=== PATIENT | female | born 1955 | race Caucasian/White ===

== ENCOUNTER 2016-04-01 14:01 | Emergency (ER) | payer OTHER ==
[~2016-04-01] VITALS: Ht 167.6 cm; Wt 78.5 kg
[2016-04-01 14:15] VITALS: BP 152/72
--- NOTE | 2016-04-01 14:39 | ED UPPER/LOWER EXTREMITY COMPL ---
History of Present Illness General Chief Complaint: Fall Stated Complaint: BIBA FALL, ABRASION TO R ARM Source: patient Exam Limitations: no limitations Vital Signs & Intake/Output Vital Signs & Intake/Output Vital Signs Date Time Temp Pulse Resp B/P Pulse O2 O2 Flow FiO2 Ox Delivery Rate 04/01 1415 96.4 66 20 152/72 98 Room Air Allergies Coded Allergies: No Known Allergies (04/01/16) Reconcile Medications Aspirin (Aspirin*) 81 MG TAB.CHEW 1 TAB PO DAILY HEART HEALTH (Reported) Doxycycline Hyclate (Acticlate) 150 MG TABLET 1 TAB PO DAILY ANTIBIOTIC, INFECTION (Reported) Duloxetine HCl 30 MG CAPSULE.DR 1 CAP PO DAILY MENTAL HEALTH (Reported) Levothyroxine Sodium 125 MCG TABLET 1 TAB PO DAILY AC THYROID (Reported) Nebivolol HCl (Bystolic) 10 MG TABLET 1 TAB PO DAILY HEART (Reported) Valsartan/Hydrochlorothiazide (Valsartan-Hctz 160-12.5 MG Tab) 160 MG-12.5 MG TABLET 1 TAB PO DAILY HEART (Reported) Triage Note: PT BIBA TO TRIAGE S/P SLIP AND FALL TODAY. PT WAS AT WORK, SLIPPED ON WATER ON THE FLOOR AND FELL TO THE GROUND. STATES "I BARELY HIT MY HEAD". DENIES LOC. C/O ABRASION TO RFA. Triage Nurses Notes Reviewed? yes Onset: Abrupt Duration: better Timing: single episode today Severity: mild Severity Numbers: 1 Pain/Injury Location: Right: Elbow. Method of Injury: direct blow HPI: Patient is a 61-year-old female who presents to emergency room stating that while at work today patient slipped on a wet floor resulting in patient bracing her fall with the inside part of her right elbow striking the countertop and subsequently patient fell backwards and had "a minimal tap" to the back of her head To the ground Patient denies any preceding episode of lightheaded sensation or dizziness. Denies any loss of consciousness. Currently denies any pain denies any headache back pain neck pain extremity pain. Patient does note bruising to the medial aspect of her right elbow. However with ambulation and upper extremity movements she has no pain no medications given prior to arrival. Denies any photophobia lightheaded sensation dizziness She was advised to present to the emergency room because this occurred at work (SHADE DANG) Past History Travel History Traveled to [place] past 21 day No Medical History Any Pertinent Medical History? see below for history Neurological: TIA Cardiovascular: hypertension Surgical History Surgical History: non-contributory Psychosocial History What is your primary language Dutch Tobacco Use: Quit >30 days ago ETOH Use: denies use Illicit Drug Use: denies illicit drug use Family History Hx Contributory? No (SHADE DANG) Review of Systems Review of Systems Constitutional: Reports: no symptoms. EENTM: Reports: no symptoms. Respiratory: Reports: no symptoms. Cardiovascular: Reports: no symptoms. Gastrointestinal/Abdominal: Reports: no symptoms. Genitourinary: Reports: no symptoms. Musculoskeletal: Reports: see HPI. Skin: Reports: no symptoms. Neurological/Psychological: Reports: no symptoms. Hematologic/Endocrine: Reports: see HPI, bruising. Immunological: Reports: no symptoms. All Other Systems: Reviewed and Negative (SHADE DANG) Physical Exam Physical Exam General Appearance: no apparent distress, alert Neurologic/Tendon: normal sensation, normal motor functions, normal tendon functions, responds to pain, no evidence tendon injury, no pulse deficit Skin: intact Comments: Well-developed well-nourished person in no acute distress HEENT: Normal EENT exam, extraocular motion intact, no nystagmus. Pupils equally round and reactive to light and accommodation. Nose is atraumatic. External auditory canal and Tympanic membranes clear. Pharynx normal. No swelling or edema. Neck: Supple, no lymphadenopathy, normal range of motion without pain or tenderness No central spinous tenderness Back: Nontender, no CVA tenderness. Full range of motion No central spinous tenderness Cardiovascular: Regular rate and rhythms no murmurs rubs or gallops, normal JVP Respiratory: Chest nontender. No respiratory distress.breath sounds clear to auscultation bilaterally Abdomen: Soft, nontender nondistended, no appreciable organomegaly. Normal bowel sounds. No ascites Extremity: no calf tenderness to palpation, normal and equal pulses. Right shoulder nontender normal section full active range of motion Right elbow mild medial epicondyle ecchymosis noted nontender full active range of motion full resisted range of motion with flexion and extension Right upper extremity dermatomes intact radial pulse +2 Neuro: Alert oriented x3, motor sensory normal, cranial nerves II through XII grossly intact. Negative Romberg and negative cerebellar testing Skin: No appreciable rash on exposed skin, skin is warm and dry. Psych: Mood and affect is normal, memory and judgment is normal. (SHADE DANG) Progress Differential Diagnosis: arterial insufficiency, compartment syndrome, contusion, dislocation, DVT, fracture, gout, septic arthritis, sprain, tendon injury, ich, CONCUSSION, FRACTURE Plan of Care: Patient currently offers no complaints and denies any pain denies any headache Denies any loss of consciousness no central spinous tenderness no basilar skull fracture signs no severe mechanism injury. No vomiting has occurred. At this time patient does not require CT scan to rule out ICH of head Upon discharge patient looks well no apparent distress Patient also has full active range of motion and full resisted range of motion to contusion site of right elbow which does not require emergent x-ray for concerns of osseous injury patient agrees with disposition and plan and has no questions (SHADE DANG) Departure Departure Disposition: HOME OR SELF CARE Condition: Stable Clinical Impression Primary Impression: Contusion of elbow, right Secondary Impressions: Minor head injury Referrals: HENRY DAMIAN,ENRIQUE [place] (PCP/Family) Referred to [facility] as new patient No Additional Instructions: As discussed begin icing the bruise 20 minutes every 2 hours for pain and inflammation. If needed begin [id number] ibuprofen for pain and inflammation. If symptoms worsen or if you develop any new concerning symptom return to emergency room. 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 I have also reviewed all the pertinent lab results and diagnostic results. I agree with the findings and the plan of care as documented in the PA's/ASPHALT DAUBER's documentation. [X] I have reviewed the ED Record and agree with the PA's/ASPHALT DAUBER's documentation. [] Additions or exceptions (if any) to the PAs/ASPHALT DAUBER's note and plan are summarized below: [] (JESUS KHAN DO)
[2016-04-01] MEDS ORDERED: VALSARTAN-HCTZ1 EAC1 PO (14:43)
[2016-04-01] MEDS ORDERED: ASPIRIN81 M4 PO (14:43)
[2016-04-01] MEDS ORDERED: BYSTOLIC10 M1 PO (14:43)
[2016-04-01] MEDS ORDERED: LEVOTHYROXINE125 MCG PO (14:43)
[2016-04-01] MEDS ORDERED: ACTICLATE150 MG PO (14:44)
[2016-04-01] MEDS ORDERED: DULOXETINE HCL30 MG PO (14:44)
== END 2016-04-01 15:29 ==
LOC: ERH 14:01
DX: S50.01XA Contusion of right elbow, initial encounter (principal); S09.90XA Unspecified injury of head, initial encounter; W01.0XXA Fall on same level from slipping, tripping and stumbling without subsequent striking against object, initial encounter